=== PATIENT | female | born 1995 | race African-American/Black ===

== ENCOUNTER 2016-08-09 08:08 | Emergency (ER) | payer BC ==
[~2016-08-09] VITALS: Ht 154.9 cm; Wt 59.0 kg
[2016-08-09 08:09] VITALS: BP 116/90
[2016-08-09] MEDS ORDERED: VENTOLIN HFA 1818 GM INH (08:30)
[2016-08-09] MEDS ORDERED: TRILEPTAL150 MG PO (08:32)
== END 2016-08-09 08:58 | disposition home or self-care (01) ==
LOC: ER 08:08
DX: R04.0 Epistaxis (principal); J45.909 Unspecified asthma, uncomplicated